=== PATIENT | female | born 1975 | race Two or more races ===

== ENCOUNTER 2024-06-05 18:03 | Outpatient (CLI) | payer OTHER, SELFPAY | END 2024-06-05 18:04 | disposition home or self-care (01) | PROVIDERS: Visit Provider Nurse Practitioner | DX: Z11.59 Encounter for screening for other viral diseases (principal); Z11.4 Encounter for screening for human immunodeficiency virus [HIV] | CPT/HCPCS: 86703; 86803; 87340 ==